=== PATIENT | female | born 1985 | race Caucasian/White ===

== ENCOUNTER 2017-11-01 05:36 | Outpatient (CLI) | payer BC ==
[~2017-11-01] VITALS: Ht 172.7 cm; Wt 78.0 kg
[~2017-11-01 05:36] MED LIST: ACHYD1T PO; CEPH500C PO; DCS100C PO; HC2.5C30 TOP; HYDR-3454 PO; HYDROXYZINE PAMOATE PO; IBP800T PO; METH4TAB PO; PREN1TAB25 PO
[2017-11-01] MEDS ORDERED: PREN1TAB25 PO (08:46)
== END 2017-11-01 08:55 ==
LOC: PREOP 05:36
PROVIDERS: ATTEND Obstetrics & Gynecology
DX: Z01.818 Encounter for other preprocedural examination (principal); O34.211 Maternal care for low transverse scar from previous cesarean delivery; O99.013 Anemia complicating pregnancy, third trimester; D64.9 Anemia, unspecified

== ENCOUNTER 2017-11-04 10:55 | Inpatient (IN) | payer BC ==
[2017-11-04] VITALS (9 sets, daily range): BP systolic 99–116; BP diastolic 56–69
[~2017-11-04] VITALS: Ht 172.7 cm; Wt 78.0 kg
--- OUTSIDE RECORDS SUMMARY | 2017-11-04 11:34 | XMS REPORT ---
Author [facility] Address [address] [place] [address] Care Team Providers Care Insurance Manager Name Role Phone MANISH HOGAN Unavailable PROBLEMS Type Condition ICD9-CM Code [id number] Code Onset Dates Condition Status SNOMED Code Problem Encounter for dental examination Z01.20 Active [id number] ALLERGIES No Information SOCIAL HISTORY Never Assessed PLAN OF CARE VITAL SIGNS MEDICATIONS No Known Medications RESULTS No Results PROCEDURES No Known procedures IMMUNIZATIONS No Known Immunizations MEDICAL (GENERAL) HISTORY Type Description Date Medical History Childhood asthma Surgical History wisdom teeth extraction Surgical History Joint replacement Lt foot second toe 2012 Surgical History Tonsils and adnoids 1993 Hospitalization History child 2x (ceserion) Hospitalization History Bone infection X 3
--- OUTSIDE RECORDS SUMMARY | 2017-11-04 11:34 | XMS REPORT ---
Author Tr Machado [facility] Address [address] [place], [place] [address] Care Team Providers Care Metal Trimmer Name Role Phone Tr Crabtree PCP Allergies and Adverse Reactions Name Reaction Notes adhesive Rash Plan of Treatment Planned Activity Comments Planned Date Planned Time Plan/Goal X-RAY EXAM OF FOOT 02/16/2016 12:00 AM Medications Active Name Start Date Estimated Completion Date SIG Comments Sprintec (28) 0.25-35 mg-mcg oral tablet take 1 tablet by oral route once daily clindamycin HCl 300 mg oral capsule 02/18/2016 take 1 capsule (300 mg) by oral route every 6 hours Name Start Date Expiration Date SIG Comments miconazole nitrate 2 % vaginal cream 02/26/2014 insert 1 applicatorful by vaginal route once daily at bedtime Bactrim DS 800-160 mg oral tablet 02/16/2016 02/23/2016 take 1 tablet by oral route 2 times per day for 7 days Discontinued Name Start Date Discontinued Date SIG Comments Diflucan 200 mg oral tablet 09/10/2013 02/26/2014 take 400mg on day one and 200mg owens x14 days. oral 02/21/2016 Problem List Description Status Onset *No known medical problems Active Vital Signs Date Time BP-Sys(mm[Hg] BP-Yudi(mm[Hg]) HR(bpm) RR(rpm) Temp WT HT HC BMI BSA BMI Percentile O2 Sat(%) 02/21/2016 9:27:00 AM 118 mmHg 82 mmHg 88 bpm 18 rpm 98 F 136.2 lbs 67 in 21.33 kg/m2 1.71 m2 99 % 02/16/2016 6:09:00 PM 110 mmHg 70 mmHg 65 bpm 16 rpm 97.4 F 137 lbs 67 in 21.457 kg/m 1.7139 m 97 % 02/26/2014 7:00:00 PM 124 mmHg 66 mmHg 77 bpm 18 rpm 97.9 F 135.375 lbs 67 in 21.20 kg/m2 1.70 m2 100 % 09/10/2013 11:20:00 AM 126 mmHg 64 mmHg 76 bpm 18 rpm 96.7 F 132.125 lbs 67.5 in 20.3881 kg/m 1.6894 m 97 % Social History Name Description Comments Alcohol Use - Occasional Tobacco Never smoker History of Procedures Date Ordered Description Order Status 09/14/2015 12:00 AM FLU VACC 4 CATHERINE 3 YRS PLUS IM Reviewed 02/26/2014 7:33 PM URINALYSIS NONAUTO W/O SCOPE Reviewed Results Summary Data and Description Results 02/26/2014 7:33 PM Bilirub Ur Ql Strip neg Glucose Ur-sCnc neg Hgb Ur Ql Strip Trace Ketones Ur Ql Strip neg Nitrite Ur Ql Strip net pH Ur-LsCnc 6.0 Prot Ur Ql Strip Trace Sp Gr Ur Qn 1.030 Urobilinogen Ur-mCnc 0.2 WBC Est Ur Ql Strip small History Of Immunizations Name Date Admin Mfg Name Mfg Code Trade Name Lot# Route Inj Vis Given Vis Pub CVX Influenza 09/14/2015 sanofi pasteur [facility] Fluarix Quadrivalent [id number] Intramuscular Right Deltoid 09/14/2015 03/21/2015 141 History of Past Illness Name Date of Onset Comments *No known medical problems Upper Respiratory Infections Sep 10 2013 11:22AM Candidiasis Of Skin Sep 10 2013 11:22AM Vaginal candidiasis Feb 26 2014 7:03PM Flu Vaccine Sep 14 2015 11:59AM Puncture wound of foot, left, initial encounter Feb 16 2016 6:09PM Puncture wound of foot, left, subsequent encounter Feb 21 2016 9:40AM Payers Insurance Name Company Name Plan Name Plan Number Policy Number Policy Group Number Start Date [facility] [id number] Wednesday, 2011 History of Encounters Visit Date Visit Type Provider 02/21/2016 Office visit Tr Crabtree APRN 02/16/2016 Office visit Tr Crabtree APRN 02/26/2014 Office visit Adam Montes PA-C 09/10/2013 Office visit Jocelynn Santos APRN
--- OUTSIDE RECORDS SUMMARY | 2017-11-04 11:34 | XMS REPORT ---
Author Author MANISH HOGAN Organization [facility] Address [address] [place] [address] Care Team Providers Care Carbon Capture Power Plant Engineer Name Role Phone MANISH HOGAN Unavailable PROBLEMS Type Condition ICD9-CM Code AYS41-EN Code Onset Dates Condition Status SNOMED Code Problem Encounter for dental examination Z01.20 Active [id number] ALLERGIES No Known Allergies SOCIAL HISTORY Never Assessed PLAN OF CARE Activity Details Follow Up prn Reason: VITAL SIGNS Height 67 in 2016-11-27 Weight 140.2 lbs 2016-11-27 Temperature 98.5 degrees Fahrenheit 2016-11-27 Heart Rate 64 bpm 2016-11-27 Respiratory Rate 20 2016-11-27 BMI 21.96 kg/m2 2016-11-27 Blood pressure systolic 106 mmHg 2016-11-27 Blood pressure diastolic 68 mmHg 2016-11-27 MEDICATIONS Medication Instructions Dosage Frequency Start Date End Date Duration Status PredniSONE 20 mg Orally Once a day 1 tablet 24h Nov, Nov, 05 days Active RESULTS No Results PROCEDURES No Known procedures IMMUNIZATIONS No Known Immunizations MEDICAL (GENERAL) HISTORY Type Description Date Medical History Childhood asthma Surgical History wisdom teeth extraction Surgical History Joint replacement Lt foot second toe 2012 Surgical History Tonsils and adnoids 1993 Hospitalization History child 2x (ceserion) Hospitalization History Bone infection X 3
--- OUTSIDE RECORDS SUMMARY | 2017-11-04 11:34 | XMS REPORT ---
Author Tr Machado [facility] Address [address] [place], [place] [address] Care Team Providers Care Ammonia Worker Name Role Phone Tr Crabtree PCP Allergies and Adverse Reactions Name Reaction Notes adhesive Rash Plan of Treatment Planned Activity Comments Planned Date Planned Time Plan/Goal X-RAY EXAM OF FOOT 02/16/2016 12:00 AM Medications Active Name Start Date Estimated Completion Date SIG Comments Bactrim DS 800-160 mg oral tablet 02/16/2016 02/23/2016 take 1 tablet by oral route 2 times per day for 7 days Sprintec (28) 0.25-35 mg-mcg oral tablet take 1 tablet by oral route once daily clindamycin HCl 300 mg oral capsule 02/18/2016 take 1 capsule (300 mg) by oral route every 6 hours Name Start Date Expiration Date SIG Comments miconazole nitrate 2 % vaginal cream 02/26/2014 insert 1 applicatorful by vaginal route once daily at bedtime Discontinued Name Start Date Discontinued Date SIG [...] Vis Pub CVX Influenza 09/14/2015 sanofi pasteur [facility] Fluarix Quadrivalent [id number] Intramuscular Right Deltoid 09/14/2015 03/21/2015 141 History of Past Illness Name Date of Onset Comments *No known medical problems Upper Respiratory Infections Sep 10 2013 11:22AM Candidiasis Of Skin Sep 10 2013 11:22AM Vaginal candidiasis Feb 26 2014 7:03PM Flu Vaccine Sep 14 2015 11:59AM Puncture wound of foot, left, initial encounter Feb 16 2016 6:09PM Payers Insurance Name Company Name Plan Name Plan Number Policy Number Policy Group [id number] Wednesday, 2011 History of Encounters Visit Date Visit Type Provider 02/21/2016 Office visit Tr Crabtree APRN 02/16/2016 Office visit Tr Crabtree APRN 02/26/2014 Office visit Adam Montes PA-C 09/10/2013 Office visit Jocelynn Santos APRN
--- OUTSIDE RECORDS SUMMARY | 2017-11-04 11:34 | XMS REPORT ---
Author Author Adam Montes Organization [facility] Address [address] [place], [place] [address] Care Team Providers Care Web Engineer Name Role Phone Adam Montes PCP Unavailable Allergies and Adverse Reactions Name Reaction Notes NO KNOWN DRUG ALLERGIES iodine topical Plan of Treatment Planned Activity Comments Planned Date Planned Time Plan/Goal FLU VACC 4 CATHERINE 3 YRS PLUS IM 09/14/2015 12:00 AM Medications Active Name Start Date Estimated Completion Date SIG Comments oral miconazole nitrate 2 % vaginal cream 02/26/2014 insert 1 applicatorful by vaginal route once daily at bedtime Discontinued Name Start Date Discontinued Date SIG Comments Diflucan 200 mg oral tablet 09/10/2013 02/26/2014 take 400mg on day one and 200mg owens x14 days. Problem List Description Status Onset *No known medical problems Active Vital Signs Date Time BP-Sys(mm[Hg] BP-Yudi(mm[Hg]) HR(bpm) RR(rpm) Temp WT HT HC BMI BSA BMI Percentile O2 Sat(%) 02/26/2014 7:00:00 PM 124 mmHg 66 mmHg [...] of Procedures Date Ordered Description Order Status 02/26/2014 7:33 PM URINALYSIS NONAUTO W/O SCOPE [...] Ur Ql Strip small History Of Immunizations Not available. History of Past Illness Name Date of Onset Comments *No known medical problems Upper Respiratory Infections Sep 10 2013 11:22AM Candidiasis Of Skin Sep 10 2013 11:22AM Vaginal candidiasis Feb 26 2014 7:03PM Flu Vaccine Sep 14 2015 11:59AM Payers Insurance Name Company Name Plan Name Plan Number Policy Number Policy Group Number Start Date [facility] [id number] Wednesday, 2011 History of Encounters Visit Date Visit Type Provider 02/26/2014 Office visit Adam Montes PA-C 09/10/2013 Office visit Jocelynn Santos APRN
--- OUTSIDE RECORDS SUMMARY | 2017-11-04 11:34 | XMS REPORT ---
Author Author MANISH HOGAN Organization [facility] Address [address] [place] [address] Care Team Providers Care Chute Puller Name Role Phone MANISH HOGAN Unavailable PROBLEMS Type Condition ICD9-CM Code LLL62-OA Code Onset Dates Condition Status SNOMED Code Problem Encounter for dental examination Z01.20 Active [id number] ALLERGIES No Known Allergies SOCIAL HISTORY Never Assessed PLAN OF CARE Activity Details Follow Up prn Reason: VITAL SIGNS Height 67 in 2016-12-11 Weight 137.3 lbs 2016-12-11 Temperature 98.3 degrees Fahrenheit 2016-12-11 Heart Rate 78 bpm 2016-12-11 Respiratory Rate 20 2016-12-11 BMI 21.50 kg/m2 2016-12-11 Blood pressure systolic 100 mmHg 2016-12-11 Blood pressure diastolic 64 mmHg 2016-12-11 MEDICATIONS Medication Instructions Dosage Frequency Start Date End Date Duration Status Flonase Allergy Relief 50 MCG/ACT Nasally Once a day 1 spray in each nostril 24h Sep, 30 day(s) Active RESULTS No Results PROCEDURES Procedure Date Ordered Result Body Site DEPO MEDROL 40 MG/ML December 11, 2016 DEXAMETHASONE 4MG/ML (PER 1 MG) December 11, 2016 THER/PROPH/DIAG INJ, SC/IM December 11, 2016 IMMUNIZATIONS Vaccine Route Administration Date Status DEXAMETHASONE 4MG/ML (PER 1 MG) IM Intramuscular December 11, 2016 Administered DEPO MEDROL 40 MG/ML IM Intramuscular December 11, 2016 Administered MEDICAL (GENERAL) HISTORY Type Description Date Medical History Childhood asthma Surgical History wisdom teeth extraction Surgical History Joint replacement Lt foot second toe 2012 Surgical History Tonsils and adnoids 1993 Hospitalization History child 2x (ceserion) Hospitalization History Bone infection X 3
--- OUTSIDE RECORDS SUMMARY | 2017-11-04 11:34 | XMS REPORT ---
Author Author MANISH HOGAN Organization [facility] Address [address] [place] [address] Care Team Providers Care Shipping And Receiving Name Role Phone MANISH HOGAN Unavailable PROBLEMS Type Condition ICD9-CM Code WHB37-LM Code Onset Dates Condition Status SNOMED Code Problem Encounter for dental examination Z01.20 Active [id number] ALLERGIES Substance Reaction Event Type Date Status N.K.D.A. Unknown Non Drug Allergy Aug, Unknown SOCIAL HISTORY No smoking Hx information available PLAN OF CARE Activity Details Follow Up prn Reason: VITAL SIGNS Height 67 in 2016-08-08 Weight 142.2 lbs 2016-08-08 Temperature 99.6 degrees Fahrenheit 2016-08-08 Heart Rate 88 bpm 2016-08-08 Respiratory Rate 20 2016-08-08 BMI 22.27 kg/m2 2016-08-08 Blood pressure systolic 110 mmHg 2016-08-08 Blood pressure diastolic 70 mmHg 2016-08-08 MEDICATIONS Medication Instructions Dosage Frequency Start Date End Date Duration Status Promethazine-Codeine 6.25-10 MG/5ML Orally every 6 hrs 5 ml as needed 6h Aug, Aug, 05 days Active Penicillin V Potassium 500 MG Orally Four times a day 1 tablet 6h Active Augmentin 875-125 MG Orally every 12 hrs 1 tablet 12h Aug,Aug 10 day(s) Active RESULTS Name Result Date Reference Range INFLUENZA A & B (IN HOUSE) 2016-08-08 INFLUENZA A negative INFLUENZA B negative Control + Lot # [id number] Exp date 2016 PROCEDURES Procedure Date Ordered Related Diagnosis Body Site Office Visit, Est Pt., Level 3 Aug 08, 2016 DEPO MEDROL 40 MG/ML Aug 08, 2016 DEXAMETHASONE 4MG/ML (PER 1 MG) Aug 08, 2016 THER/PROPH/DIAG INJ, SC/IM Aug 08, 2016 INFLUENZA ASSAY W/OPTIC Aug 08, 2016 IMMUNIZATIONS Vaccine Route Administration Date Status DEXAMETHASONE 4MG/ML (PER 1 MG) IM Intramuscular Aug 08, 2016 Administered DEPO MEDROL 40 MG/ML IM Intramuscular Aug 08, 2016 Administered
--- OUTSIDE RECORDS SUMMARY | 2017-11-04 11:34 | XMS REPORT ---
Author Author CORINA VALLE [facility] Address [address] [place] [address] Care Team Providers Care Custody Assistant Name Role Phone CORINA VALLE Unavailable PROBLEMS Unknown Problems ALLERGIES No Known Allergies ENCOUNTERS Encounter Location Date Diagnosis [facility] [id number] [place] [address] Jun Left lateral abdominal pain R10.9 [facility] [address] [facility] [id number] [place] [id number] Jan, Encounter for dental examination Z01.20 [facility] [address] [id number] [place] [address] December [facility] [address] [id number] [place] [address] December Dizziness R42 [facility] [address] [id number] [place] [address] Nov Allergic contact dermatitis due to plants, except food L23.7 [facility] [address] [id number] [place] [address] Sep Dizziness R42 [facility] [address] [id number] [place] [address] Aug Bronchitis J40 [facility] [address] [id number] [place] [address] May Vaginal discharge N89.8 [facility] [address] [facility] [id number] [address] May, [facility] [address] [facility] [id number], [place] [address] Jul, IMMUNIZATIONS No Known Immunizations SOCIAL HISTORY Never Assessed REASON FOR VISIT prophy/flaquita PLAN OF CARE Activity Details Follow Up 6 Months Reason:Recall VITAL SIGNS Heart Rate 60 bpm 2017-01-30 Blood pressure systolic 95 mmHg 2017-01-30 Blood pressure diastolic 56 mmHg 2017-01-30 MEDICATIONS No Known Medications RESULTS No Results PROCEDURES Procedure Date Ordered Result Body Site LTD ORAL EVALUATION - PROBLEM FOCUS January 30, 2017 PROPHYLAXIS - ADULT January 30, 2017 INSTRUCTIONS MEDICATIONS ADMINISTERED No Known Medications MEDICAL (GENERAL) HISTORY Type Description Date Medical History Childhood asthma Medical History Due date 11/09/2017 Surgical History wisdom teeth extraction Surgical History Joint replacement Lt foot second toe 2012 Surgical History Tonsils and adnoids 1993 Hospitalization History child 2x (ceserion) Hospitalization History Bone infection X 3
--- OUTSIDE RECORDS SUMMARY | 2017-11-04 11:34 | XMS REPORT | CCD ---
Author Author ISIAH TOVAR Unknown Address [address] [facility] [address] [place], [place] [address] Care Team Providers Care Montessori Lead Teacher Name Role Phone ALFRED BRIZUELA MD Attphys ALFRED BRIZUELA MD Prisurg Vital Signs Unknown or Not Available. Allergies Allergy Code Allergy Type Reaction Status No Known Drug Allergies 0 No known drug allergies Active Procedures Procedure Code Procedure Type Date ^CBC W/AUTO DIFF 9889915 SNOMED CT 02/18/2016 C REACTIVE PROTEIN 06741622 SNOMED CT 02/18/2016 SED RATE [id number] SNOMED CT 02/18/2016 CBC W/ AUTO DIFF (RFLX MAN DIFF IF IND) 7094084 SNOMED CT 02/18/2016 History of Immunizations Unknown or Not Available. Problems Unknown or Not Available. Results CBC W/ AUTO DIFF (RFLX MAN DIFF IF IND) - Collect Date/Time: 02/18/2016 02:30 Test Name Code Test Result Test Units Test Ref Range WBC 37888-2 5.9 TH/CMM L=4.5 H=10.8 RBC 789-8 4.10 ML/CMM L=4.20 H=5.40 HGB 718-7 12.2 G/DL L=12.0 H=16.0 HCT 4544-3 36.7 % L=37.0 H=47.0 MCV 90 FL L=81 H=99 MCH 29.8 PG L=27.0 H=33.0 MCHC 33.2 G/DL L=31.0 H=36.0 RDW SD 42 FL L=36 H=50 RDW CV 12.7 % L=0.0 H=14.8 MPV 10.0 FL L=9.3 H=12.5 PLT 777-3 196 TH/CMM L=130 H=440 NRBC# 0.00 TH/CMM L=0.00 H=0.00 NRBC% 0.0 /100WBC L=0.0 H=2.0 %NEUT 44.9 % %LYMP 46.7 % %MONO 5.9 % %EOS 1.5 % %BASO 0.8 % #NEUT 2.66 TH/CMM L=2.10 H=8.20 #LYMP 2.77 TH/CMM L=0.90 H=5.20 #MONO 0.35 TH/CMM L=0.16 H=1.00 #EOS 0.09 TH/CMM L=0.00 H=0.80 #BASO 0.05 TH/CMM L=0.00 H=0.20 MANUAL DIFF NOT IND N/A SED RATE - Collect Date/Time: 02/18/2016 02:30 Test Name Code Test Result Test Units Test Ref Range SEDRATE 4537-7 7 MM/HR L=0 H=20 C REACTIVE PROTEIN - Collect Date/Time: 02/18/2016 02:30 Test Name Code Test Result Test Units Test Ref Range C REACTIVE PROTEIN 1988-5 0.8 MG/DL L=0.0 H= 1.0 Active Medications Unknown or Not Available. Medications Administered During Visit Unknown or Not Available. Encounters Encounter Diagnosis Diagnosis Code Start Date Puncture wound of foot [id number] 02/17/2016 Social History Smoking Status Code Start Date End Date Never smoker [id number] Patient Decision Aids Unknown or Not Available. Discharge Instructions You were admitted to [facility] on 02/17/2016 23:12 with a principal diagnosis of Puncture wound without foreign body, left foot, initial encounter You had the following tests done: C REACTIVE PROTEIN CBC W/ AUTO DIFF (RFLX MAN DIFF IF IND) SED RATE You were discharged from [facility] on 02/18/2016 03:23 Should you have any questions prior to discharge, please contact a member of your healthcare team. If you have left the hospital and have any questions, please contact your primary care physician. Chief Complaint and Reason For Visit Chief Complaint Date of Onset WOUND RECHECK Function Status Unknown or Not Available. Plan of Care Unknown or Not Available. Referral/Transition of Care Unknown or Not Available.
--- OUTSIDE RECORDS SUMMARY | 2017-11-04 11:34 | XMS REPORT ---
Author Author Jo Ann Moffett Organization [facility] Address [address] [place], [place] [address] Care Team Providers Care Communication Coordinator Name Role Phone Jo Ann Moffett PCP Unavailable Allergies and Adverse Reactions Name Reaction Notes adhesive Rash Plan of Treatment Planned Activity Comments Planned Date Planned Time Plan/Goal FOOT 3 VIEWS 02/16/2016 12:00 AM Medications Active Name Start Date Estimated Completion Date SIG Comments Sprintec (28) 0.25-35 mg-mcg oral tablet take 1 tablet by oral route once daily ibuprofen 800 mg oral tablet penicillin V potassium 500 mg oral tablet take 1 tablet (500 mg) by oral route 4 times per day Name Start Date Expiration Date SIG Comments miconazole nitrate 2 % vaginal cream 02/26/2014 insert 1 applicatorful by vaginal route once daily at bedtime Bactrim DS 800-160 mg oral tablet 02/16/2016 02/23/2016 take 1 tablet by oral route 2 times per day for 7 days amoxicillin 500 mg oral capsule 04/13/2016 04/23/2016 take 2 capsules by oral route every 12 hours for 10 days Discontinued Name Start Date Discontinued Date SIG Comments Diflucan 200 mg oral tablet 09/10/2013 02/26/2014 take 400mg on day one and 200mg owens x14 days. oral 02/21/2016 clindamycin HCl 300 mg oral capsule 02/18/2016 08/04/2016 take 1 capsule ( 300 mg) by oral route every 6 hours Problem List Description Status Onset *No known medical problems Active Vital Signs Date Time BP-Sys(mm[Hg] BP-Yudi(mm[Hg]) HR(bpm) RR(rpm) Temp WT HT HC BMI BSA BMI Percentile O2 Sat(%) 08/04/2016 10:55:00 AM 122 mmHg 64 mmHg 64 bpm 18 rpm 98.4 F 132.062 lbs 99 % 02/21/2016 9:27:00 AM 118 mmHg 82 mmHg 88 bpm 18 rpm 98 F 136.2 lbs 67 in 21.3317 kg/m 1.7089 m 99 % 02/16/2016 6:09:00 PM 110 mmHg 70 mmHg 65 bpm 16 rpm 97.4 F 137 lbs 67 in 21.46 kg/m2 1.71 m2 97 % 02/26/2014 7:00:00 PM 124 mmHg 66 mmHg 77 bpm 18 rpm 97.9 F 135.375 lbs 67 in 21.2025 kg/m 1.7038 m 100 % 09/10/2013 11:20:00 AM 126 mmHg 64 mmHg 76 bpm 18 rpm 96.7 F 132.125 lbs 67.5 in 20.39 kg/m2 1.69 m2 97 % Social History Name Description Comments [...] Vis Pub CVX Influenza 09/14/2015 sanofi pasteur [facility] Fluarix Quadrivalent [id number] Intramuscular Right Deltoid 09/14/2015 [...] left, subsequent encounter Feb 21 2016 9:40AM Allergic rhinitis Aug 04 2016 10:57AM Payers Insurance Name Company Name Plan Name Plan Number Policy Number Policy Group Number Start Date [employer] [id number] Wednesday, 2011 History of Encounters Visit Date Visit Type Provider 08/04/2016 Office visit Jo Ann Moffett APRN 02/21/2016 Office visit Tr Crabtree FOREIGN EXCHANGE SERVICES MANAGER 02/16/2016 Office visit Tr Crabtree FOREIGN EXCHANGE SERVICES MANAGER 02/26/2014 Office visit Adam Montes PA-C 09/10/2013 Office visit Jocelynn Santos APRN
--- OUTSIDE RECORDS SUMMARY | 2017-11-04 11:34 | XMS REPORT ---
Author MANISH Bhatt [facility] Address Unknown Phone Unavailable Care Team Providers Care Staff Analyst Name Role Phone MANISH HOGAN CP Unavailable Allergies, Adverse Reactions, Alerts Substance Reaction Event Type N.K.D.A. Info Not Available Non Drug Allergy Problems Problem Type Condition Code Onset Dates Condition Status Assessment Vaginal discharge N89.8 Active Medications Medication Code System Code Instructions Start Date End Date Status Dosage Diflucan [facility] [address]-99 150 MG Orally x1, may repeat in 72 hrs if symptoms do not resolve May 28, 2016 1 tablet Procedures Procedure Coding System Code Date CORRALES VAG, DNA, DIR PROBE CPT-4 59962 May 28, 2016 Office Visit, Est Pt., Level 3 CPT-4 83202 May 28, 2016 CULTURE, BACTERIA, OTHER CPT-4 60901 May 28, 2016 Vital Signs Date/Time: May 28, 2016 Cardiac Monitoring Heart Rate 70 bpm Weight 142.7 lbs Height 67 in BMI 22.35 Index Blood Pressure Diastolic 68 mmHg Blood Pressure Systolic 106 mmHg Results Name Result Date Reference Range Unit Abnormality Flag BACTERIAL VAGINOSIS (IN HOUSE) ----RESULTS NEGATIVE [id number] ----Lot # [id number] ----Exp date [id number] CULTURE, GENITAL ----Result 1 Yeast isolated. [id number] ----Genital Culture, Routine Final report [id number] Summary Purpose Hydro[employer]ovation Submission
--- OUTSIDE RECORDS SUMMARY | 2017-11-04 11:35 | XMS REPORT | Continuity of Care Document ---
Author Author [facility] Organization [facility] Address Unknown Phone Unavailable Allergies Active Description Code Type Severity Reaction Onset Reported/Identified Relationship to Patient Clinical Status Yes No Known Drug Allergies [id number] Drug Allergy Unknown N/A 10/30/2012 Yes povidone-iodine [id number] Drug Allergy Mild rash 08/24/2014 Yes Soap [id number] Drug Allergy Mild rash 08/24/2014 Yes adhesive [id number] Drug Allergy Moderate RASH 08/25/2014 Yes chlorhexidine [id number] Drug Allergy Moderate RASH 08/25/2014 Medications There is no data. Problems Date Dx Coded Attending Type Code Diagnosis Diagnosed By 08/26/2014 KAZ BIRD MD Ot 216.5 08/26/2014 KAZ BIRD MD Ot 216.7 08/26/2014 KAZ BIRD MD Ot 654.23 08/26/2014 KAZ BIRD MD Ot 782.1 08/26/2014 KAZ BIRD MD Ot V06.1 08/26/2014 KAZ BIRD MD Ot V27.0 Procedures There is no data. Results There is no data. Encounters ACCT No. Visit Date/Time Discharge Status Pt. Type Provider Facility Loc./Unit Complaint [id number] 08/24/2014 05:56:00 08/26/2014 16:00:00 DIS Inpatient KAZ BIRD MD [facility] LDRP [id number] 08/17/2014 06:22:00 08/17/2014 23:59:59 CLS Outpatient KAZ BIRD MD [facility] PREOP [id number] 07/31/2013 06:13:00 07/31/2013 12:52:00 DIS Outpatient [id number] 07/23/2013 10:34:00 07/23/2013 23:59:59 CLS Outpatient [id number] 06/18/2017 13:40:00 06/18/2017 23:59:59 CLS Outpatient THOMAS PALMER LAC [facility]OWN [id number] 08/04/2016 11:23:39 08/04/2016 23:59:59 CLS Outpatient Jo Ann Moffett [id number] 02/21/2016 10:15:01 02/21/2016 23:59:59 CLS Outpatient Tr Crabtree [id number] 02/16/2016 19:01:52 02/16/2016 23:59:59 CLS Outpatient Tr Crabtree [id number] 02/26/2014 19:58:21 02/26/2014 23:59:59 CLS Outpatient Adam Montes [id number] 09/10/2013 12:11:03 09/10/2013 23:59:59 CLS Outpatient Jocelynn Santos
[2017-11-04] MEDS ORDERED: D5 LR IV SOLUTION 1,000 ML IV SCH (11:50)
--- NOTE | 2017-11-04 11:54 | History & Physical ---
History and Physical Date Seen by Provider: Nov 04, 2017 Time Seen by Provider: 11:52 This patient is a 11-year-old white female with 2 previous C-sections. She presents now for repeat delivery at 39-2/7 weeks' gestation. She' s had no problems with this . GBS culture was negative. Patient denies rupture membranes or bleeding urine Allergies are none Occasions are vitamins Medical social histories and surgical histories are per the antepartum record ENT exam is normal Neck is supple no lymphadenopathy no thyromegaly Abdomen is gravid soft nontender nondistended Extremities show clubbing cyanosis inside Pelvic exam is deferred Assessment and plan term at 39+ weeks' gestation with 2 previous C- sections. Patient is admitted now for repeat delivery Term at 39+ weeks gestation admitted for repeat Allergies and Home Medications Allergies Coded Allergies: adhesive (Verified Allergy, Intermediate, RASH, 08/25/14) SOME ADHESIVES chlorhexidine (Verified Allergy, Intermediate, RASH, 08/25/14) SEVERE REDDENED RAISED RASH Home Medications Vit#96/Ferrous Fum/FA 1 Each Tablet, 1 TAB PO DAILY, (Reported) Patient Home Medication List Home Medication List Reviewed: Yes AKZ BIRD MD Nov 04, 2017 11:54 am
[2017-11-04] MEDS ORDERED: D5 LR IV SOLUTION 1,000 ML IV ONE (11:59)
[2017-11-04] MEDS ORDERED: oxyCODONE/APAP 10/325MG (PERCOCET 10) TABLET PO PRN (12:00)
[2017-11-04] MEDS ORDERED: PROMETHAZINE INJ 25 MG/ML (PHENERGAN) AMP IM PRN (12:00)
[2017-11-04] MEDS ORDERED: MEASLES,MUMPS,RUBELLA 1 EA INJ SC ONE (12:00)
[2017-11-04] MEDS ORDERED: metroNIDAZOLE 500MG/100ML IVPB 100 ML IV ONE (12:00)
[2017-11-04] MEDS ORDERED: ONDANSETRON 4 MG/2 ML (SDV) Z0FRAN IVP PRN (12:00)
[2017-11-04] MEDS ORDERED: MEPERIDINE (DEMEROL) INJ 100 MG/ML IM PRN (12:00)
[2017-11-04] MEDS ORDERED: ceFAZolin INJECTION 2,000 MG in NS (IVPB) 100 ML IV ONE (12:00)
[2017-11-04] MEDS ORDERED: TETANUS,DIPTH,PERTUSS P/F (BOOSTRIX) 0.5 ML VIAL IM ONE (12:00)
[2017-11-04] MEDS ORDERED: LACTATED RINGERS 1,000 ML IV PRN ×2 (12:21)
[2017-11-04 12:25] LABS: BASOPHILS % (AUTO) 0 % (0-10); EOSINOPHILS % (AUTO) 0 % (0-10); HEMATOCRIT 34 % (35-52); HEMOGLOBIN 11.7 G/DL (11.5-16.0); LYMPHOCYTES # (AUTO) 1.4 X 10^3 (1.0-4.0); LYMPHOCYTES % (AUTO) 13 % (12-44); MEAN CORPUSCULAR HEMOGLOBIN 30 PG (25-34); MEAN CORPUSCULAR HGB CONC 34 G/DL (32-36); MEAN CORPUSCULAR VOLUME 88 FL (80-99); MEAN PLATELET VOLUME 10.4 FL (7.4-10.4); MONOCYTES # (AUTO) 0.5 X 10^3 (0.0-1.0); MONOCYTES % (AUTO) 5 % (0-12); NEUTROPHILS % (AUTO) 82 % (42-75); PLATELET COUNT 225 10^3/uL (130-400); RED BLOOD COUNT 3.88 10^6/uL (4.35-5.85); RED CELL DISTRIBUTION WIDTH 13.2 % (10.0-14.5); WHITE BLOOD COUNT 10.9 10^3/uL (4.3-11.0)
[2017-11-04] MEDS ORDERED: FAMOTIDINE 20MG/2ML IV (PEPCID) IV ONE (12:30)
[2017-11-04] MEDS ORDERED: CATHETER FLUSH 10 ML SYR IV PRN (12:30)
[2017-11-04] MEDS ORDERED: CITRIC ACID/SOB CIT (BICITRA) 30 ML UDC PO ONE (12:30)
[2017-11-04] MEDS ORDERED: METOCLOPRAMIDE INJ 10 MG/2 ML (REGLAN) IV ONE (12:30)
[2017-11-04] MEDS ORDERED: fentaNYL INJECTION 100 MCG/2 ML AMP ONE (13:43)
[2017-11-04] MEDS ORDERED: OXYTOCIN/NORMAL SALINE 500 ML IV ONE (14:23)
[2017-11-04] MEDS ORDERED: ONDANSETRON 4 MG/2 ML (SDV) Z0FRAN ONE (14:23)
[2017-11-04] MEDS ORDERED: NALOXONE 0.4 MG/ML 1 ML (NARCAN) VIAL IV PRN (15:00)
[2017-11-04] MEDS ORDERED: diphenhydrAMINE 50 MG/ML INJ (BENADRYL) IV PRN (15:00)
[2017-11-04] MEDS ORDERED: ONDANSETRON 4 MG/2 ML (SDV) Z0FRAN IV PRN (15:00)
[2017-11-04] MEDS: KETOROLAC 30 MG/ML VIAL IVP SCH ×2 (16:33→21:50)
[2017-11-04] MEDS: OXYTOCIN/NORMAL SALINE 500 ML IV SCH (18:44)
[2017-11-04] MEDS: DOCUSATE SODIUM 100 MG (COLACE) CAP PO SCH (20:58)
[2017-11-05 00:15] VITALS: BP 104/60
--- NOTE | 2017-11-05 00:23 | OPERATIVE REPORT ---
DATE OF SERVICE: 11/04/2017 PREOPERATIVE DIAGNOSES: A 39+ week with previous x2 for repeat . POSTOPERATIVE DIAGNOSES: A 39+ week with previous x2 for repeat . OPERATIVE PROCEDURE: Repeat low transverse delivery of a viable female infant with Apgars of 8 and 9 at 1 and 5 minutes respectively, weight 7 pounds 2 ounces and a cord blood gas pH of 7.3. OPERATIVE DESCRIPTION: With the patient in the supine position under satisfactory spinal anesthesia, she was prepped and draped in the usual fashion for abdominal surgery. Caraballo catheter was placed in the urinary bladder. A repeat Pfannenstiel incision made through the skin with a scalpel by removing the patient's previous Pfannenstiel incisional hypertrophic scar. The abdomen was then entered in the usual manner. Bladder retractor placed into position. Clean scalpel used to make a 4 cm hysterotomy incision transversely across the lower uterine segment and that area of the lower uterine segment was quite thin, comprised of little or no myometrium, membranes and peritoneum. The incision was extended bluntly. Clear fluid was released on hysterotomy. A vigorous viable female infant was delivered via the uterine incision. had Apgars of 8 and 9 at 1 and 5 minutes respectively, weight 7 pounds 2 ounces, time was 1422. The was bulb suctioned on delivery of the head and again on completion of delivery. Umbilical cord was doubly clamped and cut and the passed to the courtesy car driver in attendance for delivery. Cord blood was obtained. The placenta delivered spontaneously Gordon. It was normal with a 3-vessel cord. The uterus was exteriorized, the interior wiped clean with a wet laparotomy sponge. Uterine incision then closed with a running locked suture of 2-0 Vicryl. Hemostasis was completed. The uterus was returned to the abdominal cavity. All blood clot and debris removed from the abdominal cavity. Sponge and needle counts correct, hemostasis assured. The anterior parietal peritoneum was closed with running suture of 2-0 Vicryl. Rectus muscles were closed with that suture as well. The rectus fascia was closed with 2-0 Vicryl, taking care to reapproximate the fascial layers and appropriate planes. The subcutaneous tissue was closed with 2-0 Vicryl and then the skin was stapled. Sponge and needle counts were correct on completion of the delivery and the repair. The estimated blood loss was around 400 mL. The patient tolerated the procedure well and was transferred to the recovery room in stable condition. had been taken stable to the full term nursery under the care of the . Job ID: [id number] DocumentID: [id number] Dictated Date: 11/04/2017 14:50:44 [employer] Furnace Installer Date: 11/05/2017 00:22:51 Dictated By: KAZ BIRD MD
[2017-11-05] MEDS: OXYTOCIN/NORMAL SALINE 500 ML IV SCH (02:03)
[2017-11-05 03:50] VITALS: BP 104/65
[2017-11-05] MEDS: KETOROLAC 30 MG/ML VIAL IVP SCH (03:55)
[2017-11-05] MEDS: BETAMETHASONE DIPRO (AUGMENTED) 0.05% CREAM 15 GM TOP SCH ×3 (06:09→21:00)
--- NOTE | 2017-11-05 08:13 | Progress Note-Standard ---
Standard Progress Note Progress Notes/Assess & Plan Date Seen by Provider: Nov 05, 2017 Time Seen by Provider: 08:12 Progress/Assessment & Plan This patient is without complaint. She is ambulating, voiding, tolerating by mouth well, has good pain control. Patient is denying chest pain, denies shortness of breath, denies nausea vomiting, denies headache. Vital Signs Date Time Temp Pulse Resp B/P (MAP) Pulse Ox O2 Delivery O2 Flow Rate FiO2 11/05/17 03:50 98.1 66 18 104/65 (78) 98 Room Air 11/05/17 00:15 98.4 77 18 104/60 (75) 97 Room Air 11/04/17 20:42 Room Air 11/04/17 19:59 97.6 72 16 116/66 (83) 97 11/04/17 18:00 98.3 69 18 108/61 (77) 99 Room Air 11/04/17 16:30 98.0 60 18 103/69 (80) 100 Room Air 11/04/17 13:30 77 20 99/56 (70) 11/04/17 13:00 79 20 111/64 (80) 11/04/17 12:15 81 20 111/66 (81) 11/04/17 12:00 73 20 105/57 (73) 11/04/17 11:30 67 20 106/58 (74) 11/04/17 11:00 97.9 69 20 111/65 (80) I & O 11/05/17 07:00 Intake Total 5300 ml Output Total 1600 ml Balance 3700 ml Signs are stable. Patient is afebrile. The abdomen is benign. Extremities show no clubbing or cyanosis. There is no Homans sign. There is some pretibial pitting edema that is normal. Assessment and plan postoperative day number 1 status post repeat delivery doing well. Plan is for routine convalescence care today and consider discharge home tomorrow Final Diagnosis 39 week repeat delivery KAZ BIRD MD Nov 05, 2017 8:13 am
[2017-11-05] MEDS ORDERED: OXYC-465 PO (08:16)
[2017-11-05] MEDS ORDERED: DOCU100C37 PO (08:16)
[2017-11-05] MEDS ORDERED: IBUP-1780 PO (08:16)
--- NOTE | 2017-11-05 08:16 | Discharge Instructions ---
Discharge Instructions Discharge Medications New, Converted or Re-Newed RX: RX on Chart Patient Instructions Patient Instructions: As directed Return to The Hospital For: As directed Activity & Diet Discharge Diet: No Restrictions Activity as Tolerated: No Orders-Post D/C & Referrals Follow Up Appt: RTC 1 week for incision check. Call to make follow up appt. for patient in 4 weeks. Wound Care: Remove elana, apply benzoin and steri strips. Activity Per routine post instructions. Please call in RX to patient pharmacy. Diet as tolerated Patient may shower or tub bathe as desired. Continue home meds KAZ BIRD MD Nov 05, 2017 8:16 am
[2017-11-05 08:45] VITALS: BP 106/68
[2017-11-05] MEDS: DOCUSATE SODIUM 100 MG (COLACE) CAP PO SCH ×2 (08:45→21:00)
[2017-11-05] MEDS: IBUPROFEN 800 MG (MOTRIN) TAB PO SCH ×2 (13:00→19:22)
[2017-11-05 13:50] VITALS: BP 115/69
[2017-11-05] MEDS ORDERED: ACETAMINOPHEN 500 MG TAB (TYLENOL) PO NR (14:15)
--- NOTE | 2017-11-05 14:49 | Anesthesia-Regional Post-Op ---
Regional Patient Condition Mental Status: Alert, Oriented x3 Circulation: Same as Pre-Op Headache: Present Sensation: Full Recovery Motor Block: Absent Post Op Complications Complications None Follow Up Care/Instructions Patient Instructions None needed. Anesthesia/Patient Condition Patient is doing well, stable vital signs, she complains of a dull headache; however, it does not appear to make a difference if she is standing or sitting. After evaluating her and discussing with her RN, Sonia Tanner, it does not appear to be a classic PDPH. We will evaluate her again tomorrow. BENJI ARRIAGA CRNA Nov 05, 2017 14:49
[2017-11-05 19:05] VITALS: BP 108/66
[2017-11-06 00:08] VITALS: BP 112/66
[2017-11-06] MEDS: IBUPROFEN 800 MG (MOTRIN) TAB PO SCH ×4 (00:14→21:23)
[2017-11-06] MEDS: diphenhydrAMINE 25 MG TAB (BENADRYL) PO PRN ×4 (00:22→13:44)
[2017-11-06 06:00] VITALS: BP 110/57
[2017-11-06 08:00] VITALS: BP 109/67
[2017-11-06] MEDS ORDERED: methylPREDNISolone 125 MG (Solu-MEDROL) VIAL IM NR ×2 (08:30→17:00)
--- NOTE | 2017-11-06 08:33 | Progress Note-Standard ---
Standard Progress Note Progress Notes/Assess & Plan Date Seen by Provider: Nov 06, 2017 Time Seen by Provider: 08:30 Progress/Assessment & Plan This patient is without complaint. She is ambulating, voiding, tolerating by mouth well, has good pain control. Patient is denying chest pain, denies shortness of breath, denies nausea vomiting, denies headache. Vital Signs Date Time Temp Pulse Resp B/P (MAP) Pulse Ox O2 Delivery O2 Flow Rate FiO2 11/05/17 03:50 98.1 66 18 104/65 (78) 98 Room Air 11/05/17 00:15 98.4 77 18 104/60 (75) 97 Room Air 11/04/17 20:42 Room Air 11/04/17 19:59 97.6 72 16 116/66 (83) 97 11/04/17 18:00 98.3 69 18 108/61 (77) 99 Room Air 11/04/17 16:30 98.0 60 18 103/69 (80) 100 Room Air 11/04/17 13:30 77 20 99/56 (70) 11/04/17 13:00 79 20 111/64 (80) 11/04/17 12:15 81 20 111/66 (81) 11/04/17 12:00 73 20 105/57 (73) 11/04/17 11:30 67 20 106/58 (74) 11/04/17 11:00 97.9 69 20 111/65 (80) I & O 11/05/17 07:00 Intake Total 5300 ml Output Total 1600 ml Balance 3700 ml Signs are stable. Patient is afebrile. The abdomen is benign. Extremities show no clubbing or cyanosis. There is no Homans sign. There is some pretibial pitting edema that is normal. Assessment and plan postoperative day number 1 status post repeat delivery doing well. Plan is for routine convalescence care today and consider discharge home tomorrow November 06, 2017 Patient is without complaint except for extensive rash and itching over her abdomen and groins and left side. He has good pain control otherwise is ambulating and voiding and tolerating by mouth well. Vital Signs Date Time Temp Pulse Resp B/P (MAP) Pulse Ox O2 Delivery O2 Flow Rate FiO2 11/06/17 06:00 97.6 101 19 110/57 (74) 97 Room Air 11/06/17 00:08 98.5 84 18 112/66 (81) 96 Room Air 11/05/17 19:05 97.7 80 20 108/66 (80) 11/05/17 13:50 98.1 75 18 115/69 (84) 100 Room Air 11/05/17 08:45 97.8 76 18 106/68 (81) 97 Room Air I & O 11/06/17 06:59 Intake Total 2850 ml Output Total 2900 ml Balance -50 ml Vital signs are stable. Patient is afebrile. The abdomen is diffusely erythematous with the maculopapular rash over the distribution of the adhesive from the surgical drape. This rash doesn't extend be on that area of her left side and down onto the thighs and into the groins. There is fairly significant labial edema. There is erythema around the surgical incision. There is no induration. Extremities show no clubbing or cyanosis. There is some pretibial pitting edema that is normal. Assessment and plan postoperative day number 2 status post repeat . Patient has an obvious allergic contact dermatitis that we will treat aggressively with steroids as this is a progressive rash that was initiated almost immediately after her surgery. There is not responded to topical betamethasone. We will give Solu-Medrol 125 mg IM and reevaluate in the couple of hours we can consider discharge home when her rash is improving KAZ BIRD MD Nov 06, 2017 8:33 am
[2017-11-06] MEDS: DOCUSATE SODIUM 100 MG (COLACE) CAP PO SCH ×2 (09:00→21:22)
[2017-11-06] MEDS: BETAMETHASONE DIPRO (AUGMENTED) 0.05% CREAM 15 GM TOP SCH ×2 (09:00→21:23)
[2017-11-06] MEDS ORDERED: ACETAMINOPHEN 500 MG TAB (TYLENOL) PO PRN (11:15)
[2017-11-06 12:00] VITALS: BP 109/63
[2017-11-06] MEDS ORDERED: hydrOXYzine (ATARAX) 10 MG TAB PO PRN (14:30)
[2017-11-06] MEDS ORDERED: hydrOXYzine (VISTARIL) 25 MG CAP PO PRN (14:30)
--- NOTE | 2017-11-06 14:46 | Anesthesia-Regional Post-Op ---
Regional Patient Condition Mental Status: Alert, Oriented x3 Circulation: Same as Pre-Op Headache: Absent Sensation: Full Recovery Motor Block: Absent Post Op Complications Complications None Follow Up Care/Instructions Patient Instructions None needed. Anesthesia/Patient Condition Patient is doing well, no complaints, stable vital signs, no apparent adverse anesthesia problems. No complications reported per nursing. AASHISH SWIFT CRNA Nov 06, 2017 14:46
[2017-11-06 16:00] VITALS: BP 95/55
[2017-11-06 21:23] VITALS: BP 116/64
[2017-11-06] MEDS: hydrOXYzine (VISTARIL) 25 MG CAP PO SCH (21:23)
[2017-11-07] MEDS: diphenhydrAMINE 25 MG TAB (BENADRYL) PO PRN ×3 (00:15→12:17)
[2017-11-07 02:35] VITALS: BP 101/61
[2017-11-07] MEDS: IBUPROFEN 800 MG (MOTRIN) TAB PO SCH ×2 (02:35→09:34)
[2017-11-07] MEDS: hydrOXYzine (VISTARIL) 25 MG CAP PO SCH ×3 (02:35→09:33)
--- NOTE | 2017-11-07 08:26 | Discharge Summary ---
Discharge Summary Term repeat delivery This patient is a 32-year-old 3 para 2 to patient in the time of admission who was admitted at 39. Repeat was uneventfully patient recovered without difficulty however she did experience a fairly dramatic rash on the abdomen in the distribution of the surgical drape. She was started on topical steroids and provide no relief whatsoever. She was treated with IM Solu -Medrol that has had the desired therapeutic effect. Her symptoms have improved the rash has not continued to spread. She does feel ready for discharge home. She is ablating, voiding, tolerating by mouth well, has good pain control. On postoperative day number 1 after her her recovery was uneventful except for the rash that was initially treated topically and now was treated with IM steroids On postoperative day number 2 the rash had not necessarily improved she continued on the steroids and supportive care with antipruritic medications. Now postoperative day number 3 patient is seeing some improvement in her rash or itching is under control she feels ready for discharge home Diagnoses this hospitalization is 39 week repeat delivery Secondary diagnoses are previous C-sections 2, contact dermatitis Operation procedures include monitoring spinal analgesia and repeat delivery as well as IM steroids Patient was given appropriate discharge instructions verbally and in writing and a copy those placed in chart. Discharge medications are Medrol Dosepak, Percocet and Motrin and Colace and Benadryl and hydroxyzine Clinical Quality Measures DVT/VTE Risk/Contraindication: Risk Factor Score Per Nursin RFS Level Per Nursing on Admit: 1=Low/No VTE PPX KAZ BIRD MD Nov 07, 2017 8:26 am
--- NOTE | 2017-11-07 08:26 | Progress Note-Standard ---
Standard Progress Note Progress Notes/Assess & Plan Date Seen by Provider: Nov 07, 2017 Time Seen by Provider: 08:26 Progress/Assessment & Plan This patient is without complaint. She is ambulating, voiding, tolerating by mouth well, has good pain control. Patient is denying chest pain, denies shortness of breath, denies nausea vomiting, denies headache. Vital Signs Date Time Temp Pulse Resp B/P (MAP) Pulse Ox O2 Delivery O2 Flow Rate FiO2 11/05/17 03:50 98.1 66 18 104/65 (78) 98 Room Air 11/05/17 00:15 98.4 77 18 104/60 (75) 97 Room Air 11/04/17 20:42 Room Air 11/04/17 19:59 97.6 72 16 116/66 (83) 97 11/04/17 18:00 98.3 69 18 108/61 (77) 99 Room Air 11/04/17 16:30 98.0 60 18 103/69 (80) 100 Room Air 11/04/17 13:30 77 20 99/56 (70) 11/04/17 13:00 79 20 111/64 (80) 11/04/17 12:15 81 20 111/66 (81) 11/04/17 12:00 73 20 105/57 (73) 11/04/17 11:30 67 20 106/58 (74) 11/04/17 11:00 97.9 69 20 111/65 (80) I & O 11/05/17 07:00 Intake Total 5300 ml Output Total 1600 ml Balance 3700 ml Signs are stable. Patient is afebrile. The abdomen is benign. Extremities show no clubbing or cyanosis. There is no Homans sign. There is some pretibial pitting edema that is normal. Assessment and plan postoperative day number 1 status post repeat delivery doing well. Plan is for routine convalescence care today and consider discharge home tomorrow November 06, 2017 Patient is without complaint except for extensive rash and itching over her abdomen and groins and left side. He has good pain control otherwise is ambulating and voiding and tolerating by mouth well. Vital Signs Date Time Temp Pulse Resp B/P (MAP) Pulse Ox O2 Delivery O2 Flow Rate FiO2 11/06/17 06:00 97.6 101 19 110/57 (74) 97 Room Air 11/06/17 00:08 98.5 84 18 112/66 (81) 96 Room Air 11/05/17 19:05 97.7 80 20 108/66 (80) 11/05/17 13:50 98.1 75 18 115/69 (84) 100 Room Air 11/05/17 08:45 97.8 76 18 106/68 (81) 97 Room Air I & O 11/06/17 06:59 Intake Total 2850 ml Output Total 2900 ml Balance -50 ml Vital signs are stable. Patient is afebrile. The abdomen is diffusely erythematous with the maculopapular rash over the distribution of the adhesive from the surgical drape. This rash doesn't extend be on that area of her left side and down onto the thighs and into the groins. There is fairly significant labial edema. There is erythema around the surgical incision. There is no induration. Extremities show no clubbing or cyanosis. There is some pretibial pitting edema that is normal. Assessment and plan postoperative day number 2 status post repeat . Patient has an obvious allergic contact dermatitis that we will treat aggressively with steroids as this is a progressive rash that was initiated almost immediately after her surgery. There is not responded to topical betamethasone. We will give Solu-Medrol 125 mg IM and reevaluate in the couple of hours we can consider discharge home when her rash is improving November 07, 2017 See discharge summary Final Diagnosis 39 week repeat KAZ BIRD MD Nov 07, 2017 8:26 am
[2017-11-07] MEDS ORDERED: DIPH25TA27 PO (08:31)
[2017-11-07] MEDS ORDERED: HYDR-3781 PO (08:31)
[2017-11-07] MEDS ORDERED: METH32TA PO (08:31)
[2017-11-07] MEDS ORDERED: medrol dose pak (08:31)
[2017-11-07] MEDS ORDERED: methylPREDNISolone 125 MG (Solu-MEDROL) VIAL IM ONE (08:45)
[2017-11-07 09:30] VITALS: BP 99/56
[2017-11-07] MEDS: DOCUSATE SODIUM 100 MG (COLACE) CAP PO SCH (09:33)
[2017-11-07] MEDS ORDERED: TETANUS,DIPTH,PERTUSS P/F (BOOSTRIX) 0.5 ML VIAL IM ONE (09:41)
[2017-11-07] MEDS: BETAMETHASONE DIPRO (AUGMENTED) 0.05% CREAM 15 GM TOP SCH (10:06)
[2017-11-07 12:30] VITALS: BP 99/56
== END 2017-11-07 12:30 | disposition home or self-care (01) | DRG 766 ==
LOC: LDRP 10:55
PROVIDERS: ADMIT Obstetrics & Gynecology; ATTEND Obstetrics & Gynecology
PROC: 10D00Z1 Extraction of Products of Conception, Low, Open Approach (ICD-10-PCS; principal; 2017-11-04 13:57)
DX: O34.211 Maternal care for low transverse scar from previous cesarean delivery (principal); O99.73 Diseases of the skin and subcutaneous tissue complicating the puerperium; L23.9 Allergic contact dermatitis, unspecified cause; Z3A.39 39 weeks gestation of pregnancy; Z37.0 Single live birth; Z23 Encounter for immunization
CPT/HCPCS: 36415; 85025; 86850; 86900; 86901; 90715; 94664